=== PATIENT | male | born 1955 | race Caucasian/White ===

== ENCOUNTER 2021-11-05 11:13 | Outpatient (CLI) | payer MEDICARE, OTHER | END 2021-11-05 11:14 | disposition home or self-care (01) | LOC: CSHMRI 11:13 | PROVIDERS: ATTEND Orthopaedic Surgery | DX: M47.812 Spondylosis without myelopathy or radiculopathy, cervical region (principal); M48.02 Spinal stenosis, cervical region; M50.322 Other cervical disc degeneration at C5-C6 level; M25.78 Osteophyte, vertebrae; M43.12 Spondylolisthesis, cervical region | CPT/HCPCS: 72141 ==